=== PATIENT | male | born 1950 | race Caucasian/White ===

== ENCOUNTER 2020-10-15 10:08 | Emergency (ER) | payer OTHER, SELFPAY ==
[2020-10-15 10:16] VITALS: BP 130/63; PULSE 64; RESP 16; TEMP 36.4; O2SAT 99
--- NOTE | 2020-10-15 10:40 | ED.EAR ---
HPI - Ear Problem General Chief complaint: Ear Stated complaint: clogged ears History of Present Illness HPI Narrative: This is a 69-year-old male comes in complaining of not being able to hear that well states that both of his ears are clogged with wax. Patient states that has been put some Debrox and he had his tried to flush his ears but it did not work Related Data Allergies Allergy/AdvReac Type Severity Reaction Status Date / Time No Known Allergies Allergy Unverified 01/25/16 08:27 Review of Systems Review of Systems: Narrative: CONSTITUTIONAL: Denies fever, chills, or sweats. EYES: Denies visual changes, redness, or discharge. ENT: Denies rhinorrhea, congestion, sore throat, or otalgia. Complains of not being able to hear and needs to get the wax out of his ear CARDIOVASCULAR:Denies chest pain, palpitations, or edema. RESPIRATORY: Denies cough or dyspnea. GASTROINTESTINAL: Denies abdominal pain, nausea, vomiting, or diarrhea. GENITOURINARY: Denies dysuria or hematuria. SKIN:[Denies rash or itching. MUSCULOSKELETAL:Denies back pain, joint pain, or myalgia. NEUROLOGIC: Denies headache, numbness, or weakness. PSYCHIATRIC:Denies anxiety or depression PMFSH Social History Social History Smoking status: Never smoker Alcohol intake: current Comments At time as signature, I have reviewed and agree with nursing past medical, social, surgical and family history. Please see nursing chart for further information. There is no relevant family history pertinent to the presenting complaint. Exam Narrative: Exam Narrative: GENERAL:Well-appearing, well-nourished, and in no acute distress. HEAD:Normocephalic, atraumatic. EYES: PERRLA and EOMI. ENT: Nares clear, no rhinorrhea or epistaxis. Mucous membranes moist. Bilateral ears impacted with cerumen NECK: Supple. CHEST: Clear to auscultation. No respiratory distress. HEART: Regular rate and rhythm. No murmur heard. Normal peripheral pulses. ABDOMEN: Soft, nontender, nondistended, normal active bowel sounds. EXTREMITIES: Normal range of motion. No edema. SKIN: Warm, dry, no rash. NEURO: No focal deficits. Alert and oriented x3. Course Vital Signs Vital signs: Vital Signs Temperature 97.5 F L 10/15/20 10:16 Pulse Rate 64 10/15/20 10:16 Respiratory Rate 16 10/15/20 10:16 Blood Pressure 130/63 10/15/20 10:16 Pulse Oximetry 99 10/15/20 10:16 Temperature 97.5 F L 10/15/20 10:16 Pulse Rate 64 10/15/20 10:16 Respiratory Rate 16 10/15/20 10:16 Blood Pressure 130/63 10/15/20 10:16 Pulse Oximetry 99 10/15/20 10:16 Procedures Ear Wax Removal Both Ears: Ear Wax Removal Date: 10/15/20 Ear Wax Removal Time: 11:10 Cerumenolytic Used: 5-10% Sodium Bicarb solution Results: Re-examined: cerumen removed completely TM Examination: TM(s) intact, normal appearance and TM(s) erythematous Patient Tolerated Procedure: well Complications: no problems Technique: ear canal irrigated and ear canal curetted Additional Comments: left sided erythema with auditory canal irritation. Copious secretions removed from bilateral ears Patient able to hear a lot better prior to discharge Medical Decision Making Vital Signs Vital Signs: Vital Signs Temperature 97.5 F L 10/15/20 10:16 Pulse Rate 64 10/15/20 10:16 Respiratory Rate 16 10/15/20 10:16 Blood Pressure 130/63 10/15/20 10:16 Pulse Oximetry 99 10/15/20 10:16 Temperature 97.5 F L 10/15/20 10:16 Pulse Rate 64 10/15/20 10:16 Respiratory Rate 16 10/15/20 10:16 Blood Pressure 130/63 10/15/20 10:16 Pulse Oximetry 99 10/15/20 10:16 Discharge Plan Discharge Clinical Impression: Bilateral impacted cerumen Patient Disposition: Home, Self-Care Condition: Stable Instructions: Antibiotic Form, Carbamide Peroxide (Into the ear) Additional Instructions: Unless a medicine was prescribed, you ma
== END 2020-10-15 11:33 | disposition home or self-care (01) ==
PROVIDERS: Emergency Provider Nurse Practitioner Family; PCP Family Medicine
DX: H61.23 Impacted cerumen, bilateral (principal)
CPT/HCPCS: 69210; 99203; A9270; G0463

== ENCOUNTER → 2021-08-29 13:06 | Outpatient (CLI) | payer OTHER, SELFPAY ==
--- NOTE | ~2021-08-29 | MR_ITS ---
EXAMINATION: MR brain/brain stem wo/w con DATE: 08/29/2021 14:06 INDICATION: Visual field defects TECHNIQUE: Magnetic resonance imaging (MRI) of the brain and brainstem was performed without intraven ous contrast. Sequences included sagittal and axial T1-weighted SE, axial diffusion-weighted FS SE, a xial T2*-weighted GRE, axial T2-weighted FLAIR Propeller, and axial T2-weighted Propeller. Apparent d iffusion coefficient (ADC) maps were created. COMPARISON: None. FINDINGS: Brain parenchymal volume is normal for age. Orbits are symmetric without disconjugate gaze. No ventriculomegaly or midline shift. No acute intracranial infarction or hemorrhage. Structures of the posterior fossa including 7/8th cranial nerve complexes are normal. Paranasal sinuses are unremar kable. Orbits are symmetric without disconjugate gaze. There are scattered mild periventricular and s ubcortical white matter changes, most likely related to small vessel ischemic disease (microangiopath y). No abnormal contrast enhancement. IMPRESSION: 1. Normal aging brain. Reviewed, dictated and finalized at location A. IMPRESSION: 1. Normal aging brain.
--- NOTE | ~2021-08-29 | MR_ITS ---
EXAMINATION: MR orbits face neck wo/w con DATE: 08/29/2021 14:07 INDICATION: Visual field defects in the left eye TECHNIQUE: Magnetic resonance imaging (MRI) of the face and orbits was performed without and with 19 mL Multihance intravenous contrast. Sequences included axial and coronal T1-weighted FSE and T2-weigh rio FS FSE and postcontrast axial and coronal T1-weighted FS FSE. COMPARISON: None. FINDINGS: The bilateral globes appear normal with normally positioned. Intraocular lenses. There is increased f luid signal surrounding the bilateral optic nerves with the diameter of the optic nerve sheaths measu ring 7 mm on both the left and right measured 4 mm posterior to the optic discs. No evident bulging o f the optic discs. No enhancement of the optic nerves to suggest optic neuritis. The orbits are other ty normal. Optic chiasm appears normal with no aneurysm or other abnormal masses identified at the suprasellar cistern. Mild mucosal thickening in the bilateral maxillary and ethmoid sinuses. Tiny naga ateral mastoid effusions. Middle ear cavities are clear. Visualized portions of the brain are unremar kable with no abnormally enhancing lesions. IMPRESSION: 1. Increased subarachnoid fluid surrounding the bilateral optic nerves with increased diameter of the optic nerve sheaths raising concern for papilledema/intracranial hypertension. Correlate with ophtha lmic exam. Reviewed, dictated and finalized at location A. IMPRESSION: 1. Increased subarachnoid fluid surrounding the bilateral optic nerves with inc reased diameter of the optic nerve sheaths raising concern for papilledema/intr acranial hypertension. Correlate with ophthalmic exam.
[2021-08-29 13:28] LABS: Estimated Glomerular Filt Rate 50
== END ==
PROVIDERS: PCP Family Medicine
DX: H53.47 Heteronymous bilateral field defects (principal)
CPT/HCPCS: 70543; 70553; A9577

== ENCOUNTER → 2022-03-06 15:19 | Outpatient (CLI) | payer OTHER, SELFPAY ==
--- NOTE | ~2022-03-06 | MR_ITS ---
EXAMINATION: MR knee LT wo con DATE: 03/06/2022 16:06 INDICATION: Medial left knee pain TECHNIQUE: Magnetic resonance imaging (MRI) of the left knee was performed without intravenous contra st. Sequences included coronal PD-weighted FSE, coronal PD-weighted FS FSE, sagittal T2-weighted FSE , sagittal PD-weighted FS FSE and axial PD weighted fat saturated FSE. COMPARISON: Left knee radiographs dated 10/03/2021 FINDINGS: Medial compartment: Complex tear of the body and posterior horn of the medial meniscus. There is medial extrusion of the meniscal body. Deep chondral ulceration and fissuring with a couple tiny foci of edema-like subarticu lar marrow signal change at the anterior weightbearing medial femoral condyle. Less severe partial th ickness cartilage loss shallow chondral surface and irregularity along the central to posterior weigh tbearing medial femoral condyle additional tiny focus of subtle edema-like signal change likely relat ed to underlying deep fissuring at the posterior weightbearing medial femoral condyle. Shallow chondr al surface regularity at the lateral side of the medial tibial plateau along the shoulder the interco ndylar eminence. Lateral compartment: Lateral meniscus is normal. Articular cartilage is normal. Patellofemoral compartment: Deep chondral ulceration and fissuring with underlying cortical irregularity and edema-like subarticu lar marrow signal changes at the medial trochlea and trochlear groove with inferior predominant. Smal l region of shallow fissuring at the central aspect of the patellar apical ridge. Ligaments and tendons: Anterior and posterior cruciate ligaments are normal. The medial collateral ligament and fibular amanda ateral ligament complex are normal. The extensor mechanism is normal. The visualized medial and later al hamstring tendons as well as the iliotibial band are normal. Fluid: Small left knee joint effusion. No loose osteochondral bodies identified. Osseous/other: Mild cystic change underlying the footplate of the anterior horn of the medial meniscus. No fracture or pathologic marrow replacing process. Subcutaneous varicosities along the medial side of the knee. IMPRESSION: 1. Medial extrusion of the medial meniscus with complex tear of the body and posterior horn. 2. 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 Reviewed, dictated and finalized at location B. ORK DESIGNER IMPRESSION: 1. Medial extrusion of the medial meniscus with complex tear of the body and po sterior horn. 2. 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
== END ==
PROVIDERS: PCP Family Medicine; Visit Provider Nurse Practitioner Family
DX: S83.232A Complex tear of medial meniscus, current injury, left knee, initial encounter (principal); X58.XXXA Exposure to other specified factors, initial encounter; M17.12 Unilateral primary osteoarthritis, left knee
CPT/HCPCS: 73721

== ENCOUNTER 2022-07-02 09:22 | Outpatient (CLI) | payer OTHER, SELFPAY ==
--- NOTE | ~2022-07-02 | XR_ITS ---
EXAMINATION: XR chest 2V DATE: 07/02/2022 09:49 INDICATION: Chest congestion TECHNIQUE: PA and lateral views of the chest were obtained. COMPARISON: Chest radiograph dated 07/26/2010 FINDINGS: The lungs remain clear with no focal airspace opacities, pulmonary edema, pleural effusion or pneumot horax. The cardiomediastinal silhouette is normal. Visualized bones and soft tissues are unremarkable . IMPRESSION: 1. No acute cardiopulmonary disease. Reviewed, dictated and finalized at location B.
== END 2022-07-02 09:23 | disposition home or self-care (01) ==
PROVIDERS: PCP Family Medicine; Visit Provider Nurse Practitioner Family
DX: R09.89 Other specified symptoms and signs involving the circulatory and respiratory systems (principal)
CPT/HCPCS: 71046

== ENCOUNTER 2022-08-03 11:00 | Emergency (ER) | payer OTHER, SELFPAY ==
[2022-08-03] VITALS (9 sets, daily range): BP systolic 100–119; BP diastolic 66–79; PULSE 66–153; RESP 13–20; O2SAT 95–100
--- NOTE | ~2022-08-03 | XR_ITS ---
EXAMINATION: XR chest 1V portable 08/03/2022 11:30 INDICATION: New onset of atrial fibrillation PROCEDURE: AP portable chest COMPARISON: Comparison to multiple prior studies sequentially, with oldest reviewed study dated 07/26/2010. FINDINGS: The lungs are clear. The cardiomediastinal silhouette is within normal limits. There are no pleural effusions. There is no pneumothorax suspected. IMPRESSION: 1: NO ACUTE CARDIOPULMONARY DISEASE. Reviewed, dictated and finalized at location B.
--- NOTE | 2022-08-03 11:09 | ECG_ITS ---
Measurements Intervals [place] Rate: 129 P: DC: 0 QRS: -10 QRSD: 90 T: 74 QT: 278 QTc: 409 Interpretive Statements ATRIAL FIBRILLATION WITH RAPID VENTRICULAR RESPONSE MODERATE VOLTAGE CRITERIA FOR LVH, CONSIDER NORMAL VARIANT POSSIBLE SEPTAL MYOCARDIAL INFARCTION , PROBABLY OLD ABNORMAL ECG NO PREVIOUS ECG AVAILABLE FOR COMPARISON Electronically Signed On 08-03-2022 16:50:47 CDT by Mike Chavis M.D.
[2022-08-03] MEDS: dilTIAZem HCl INJ 25 MG/5 ML VIAL (11:18)
[2022-08-03] MEDS: dilTIAZem 100 MG/100 ML 100 MG/100 ML BAG (11:19)
[2022-08-03 11:21] LABS: Basophils Percent Auto 0.5 % (0.2-1.2); Eosinophils Absolute Auto 0.1 K/mm3 (0-0.3); Eosinophils Percent Auto 0.8 % (0-4.4); Hematocrit 47.5 % (42.0-52.0); Hemoglobin 16.3 g/dL (14.0-18.0); Immature Granulocyte Absolute 0.02 K/mm3 (0.00-0.031); Immature Granulocyte Percent A 0.3 % (0-0.5); Lymphocytes Absolute Auto 1.69 K/mm3 (0.9-3.2); Mean Corpuscular HGB Conc 34.3 g/dl (32-36); Mean Corpuscular Hemoglobin 30.8 pg (26-34); Mean Corpuscular Volume 89.8 fl (80-100); Mean Platelet Volume 10.6 fl (7.4-10.4); Monocytes Absolute Auto 0.6 K/mm3 (0.1-0.6); Monocytes Percent Auto 8.2 % (2.6-8.5); Neutrophils Absolute Auto 4.9 K/mm3 (1.3-6.7); Neutrophils Percent Auto 67.2 % (45.5-73.1); Platelet Count Result 243 k/mm3 (150-375); Red Blood Count 5.29 M/mm3 (4.6-6.20); Red Cell Distribution Width 13.3 % (11.5-14.5); White Blood Count 7.4 K/mm3 (4.5-10.0)
[2022-08-03 11:30] LABS: INR 1.1; Prothrombin Time 13.8 Seconds (11.1-14.7)
[2022-08-03 11:31] LABS: Partial Thromboplastin Time 29.5 SECONDS (22.3-36.8)
[2022-08-03 11:34] LABS: Alanine Aminotransferase 29 U/L (6-50); Albumin Level 4.3 g/dL (3.5-5.1); Alkaline Phosphatase 58 U/L (38-126); Anion Gap 10 mmol/L (8-16); Aspartate Amino Transferase 32 U/L (17-59); Bilirubin,Total 1.2 mg/dL (0.2-1.3); Blood Urea Nitrogen 19 mg/dL (9-20); Calcium 8.9 mg/dL (8.4-10.2); Carbon Dioxide 23 mmol/L (22-30); Chloride 107 mmol/L (98-107); Estimated CRCL calculation 65 ml/min; Estimated Glomerular Filt Rate > 60; Glucose 106 mg/dL (65-110); Lipase 86 U/L (23-300); Potassium 4.1 mmol/L (3.4-5.0); Sodium 140 mmol/L (137-145)
[2022-08-03] MEDS: ASPIRIN 81 MG CHEWABLE TABLET 324 MG PO (11:36)
[2022-08-03 11:44] LABS: Troponin I < 0.012 ng/mL (0.000-0.034)
[2022-08-03 14:41] LABS: Troponin I < 0.012 ng/mL (0.000-0.034)
[2022-08-03] MEDS: ENOXAPARIN 100 MG/ML SYRINGE SUB-Q (15:01)
--- NOTE | 2022-08-03 15:40 | ED.ARRPALP ---
HPI - Arrhythmia/Palpitations General Chief Complaint: Arrhythmia/Palpitations Stated Complaint: increased hr Time Seen by Provider: 08/03/22 13:17 Source: patient and EMS Mode of arrival: EMS Limitations: no limitations History of Present Illness HPI narrative: 71 years old white male came to the emergency room by ambulance because of fast heartbeat that started last night, he denies any fever, chills, nausea, vomiting, shortness of breath, chest pain or having similar symptoms in the past. Related Data Allergies Allergy/AdvReac Type Severity Reaction Status Date / Time No Known Allergies Allergy Verified 08/03/22 11:21 Review of Systems Review of Systems: All systems reviewed & are unremarkable except as noted in HPI and below PMFSH Past Medical History Medical History Left knee DJD Left knee pain Medial meniscus tear Vision abnormalities Family History Family History Unknown Lung cancer Social History Social History Smoking status: Never smoker Alcohol intake: current Drinks per week: 2 Substance use: never Living arrangements: with family Occupation/Education: retired Gender identity (if verbalized by the patient): Male Exam Narrative: General appearance: Well-developed, well-nourished Skin: Normal color Head: Normocephalic, nontraumatic Eyes: Clear conjunctiva ENT: Oropharynx normal, ears normal, nose normal Neck: Supple, nontender Chest and respiratory: Airway patent, no respiratory distress, no accessory muscle use Heart: Tachycardia, irregular irregularity Abdomen: Soft, nontender, no organomegaly, quiet bowel sounds Vascular: Normal peripheral pulses, normal capillary refill. 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 Currently patient is asymptomatic Date: 08/03/22 Time: 17:01 Consultations Consultation #1: Dr. Upstream Will be okay for patient to go home on aspirin and Lopressor 25 mg twice daily. Vital Signs Vital signs: Vital Signs Pulse Rate 79 08/03/22 11:10 Respiratory Rate 20 08/03/22 11:10 Blood Pressure 119/78 08/03/22 11:10 Pulse Oximetry 95 08/03/22 11:10 Oxygen Delivery Room Air 08/03/22 11:10 Pulse Rate 90 08/03/22 15:42 Respiratory Rate 13 08/03/22 15:42 Blood Pressure 112/70 08/03/22 15:42 Pulse Oximetry 97 08/03/22 15:42 Oxygen Delivery Room Air 08/03/22 11:10 MDM - Arrhythmia/Palpitations MDM Narrative Medical decision making narrative: Patient presents with fast heartbeat noticed yesterday. EKG on arrival showed A-fib with RVR. Differential diagnosis include hyperthyroidism, stress, anxiety, extra caffeine, valvular abnormality, coronary artery disease. Physical examination showed tachycardia with irregular irregularity otherwise stable patient. Work-up today showed normal blood work-up, negative troponin x2, chest x-ray showed no acute abnormality, Patient on Cardizem bolus of 10 mg then 5 mg/h, currently patient heart rate running between 80 and 90 A-fib. Compared to 229 on arrival to the ED. Patient will be admitted to the hospitalist, continue Bom drip, cardiology consult
--- NOTE | 2022-08-03 16:30 | ECG_ITS ---
Measurements Intervals [place] Rate: 73 P: MI: 0 QRS: -1 QRSD: 99 T: 35 QT: 374 QTc: 413 Interpretive Statements ATRIAL FIBRILLATION MODERATE VOLTAGE CRITERIA FOR LVH, CONSIDER NORMAL VARIANT POSSIBLE SEPTAL MYOCARDIAL INFARCTION , OF INDETERMINATE AGE ABNORMAL ECG COMPARED TO ECG 08/03/2022 11:03:30 HEART RATE HAS DECREASED Electronically Signed On 08-03-2022 16:56:23 CDT by Mike Chavis M.D.
--- NOTE | 2022-08-03 16:37 | ECG_ITS ---
Measurements Intervals [place] Rate: 64 P: 49 IN: 169 QRS: -3 QRSD: 97 T: 34 QT: 401 QTc: 416 Interpretive Statements SINUS RHYTHM MINIMAL VOLTAGE CRITERIA FOR LVH, CONSIDER NORMAL VARIANT [MEETS CRITERIA IN ONE OF: R(aVL), S(V1), R(V5), R(V5/V6)+S(V1)] SEPTAL MYOCARDIAL INFARCTION , PROBABLY OLD [40+ ms Q WAVE IN V1/V2] COMPARED TO ECG 08/03/2022 15:50:55 SINUS RHYTHM NOW PRESENT Electronically Signed On 08-06-2022 10:32:17 CDT by Allen Baltazar M.D.
[2022-08-03] MEDS: METOPROLOL TARTRATE 50 MG TAB 25 MG PO (17:05)
== END 2022-08-03 17:35 | disposition home or self-care (01) ==
PROVIDERS: Emergency Provider Emergency Medicine; PCP Family Medicine
DX: I48.91 Unspecified atrial fibrillation (principal); M17.12 Unilateral primary osteoarthritis, left knee; R94.31 Abnormal electrocardiogram [ECG] [EKG]
CPT/HCPCS: 36415; 71045; 80053; 83690; 84443; 84484; 85025; 85610; 85730; 93005; 96365; 96366; 96372; 99284; A9270; J1650

== ENCOUNTER 2022-08-09 18:41 | Emergency (ER) | payer OTHER, SELFPAY ==
[2022-08-09 18:45] VITALS: BP 119/68; PULSE 76; RESP 16; TEMP 37; O2SAT 98
--- NOTE | 2022-08-09 19:08 | ED.EYEPROB ---
HPI - Eye Problem General Chief complaint: Eye Problems Stated complaint: Eye Problem Source: patient Mode of arrival: ambulatory Limitations: no limitations History of Present Illness HPI Narrative: Patient was seen at 1901. Patient presents today complaining of right eye redness, itching, drainage that started this afternoon. States his in grand kids had the same symptoms last week and were treated with eyedrops. Denies photophobia. He has not tried any [id number] medication for symptoms prior to arrival. Denies any upper respiratory or allergy symptoms. He does not wear contacts. Related Data Allergies Allergy/AdvReac Type Severity Reaction Status Date / Time No Known Allergies Allergy Verified 08/03/22 11:21 Review of Systems Review of Systems: CONSTITUTIONAL: Denies body aches, fever, chills, or sweats. EYES: Denies visual changes. + right eye redness, itching, discharge ENT: Denies rhinorrhea, congestion, sore throat, or otalgia. CARDIOVASCULAR: Denies chest pain, palpitations, or edema. RESPIRATORY: Denies cough or dyspnea. GASTROINTESTINAL: Denies abdominal pain, nausea, vomiting, or diarrhea. GENITOURINARY: Denies dysuria or hematuria. SKIN: Denies rash, itching, or wounds. MUSCULOSKELETAL: Denies back pain, joint pain, or myalgia. NEUROLOGIC: Denies headache, numbness, tingling, or weakness. PSYCH: Denies depression or anxiety. [facility] Past Medical History Medical History (Updated 08/09/22 @ 19:14 by Amira Baugh, [facility], ) Afib Left knee DJD Left knee pain Medial meniscus tear Vision abnormalities Family History Family History Unknown Lung cancer Social History Social History Smoking status: Never smoker Alcohol intake: current Drinks per week: 2 Substance use: never Living arrangements: with family Occupation/Education: retired Gender identity (if verbalized by the patient): Male Comments At time of signature, I have reviewed and agree with nursing past medical, surgical, social and family history unless otherwise noted. Please see nursing chart for further information. There is no relevant family history pertinent to the presenting complaint Exam Narrative: GENERAL: Well-appearing, well-nourished, and in no acute distress. HEAD: Normocephalic, atraumatic. EYES: EOMI. PERRL. Left eye normal. Right eye with injected conjunctiva and chemosis and moderate amount of green purulent discharge in the lateral and medial canthus. Lids and lashes normal. ENT: Mucous membranes pink and moist. NECK: Normal AROM. CHEST: No respiratory distress. EXTREMITIES: Normal range of motion. No edema. SKIN: Warm, dry, no rash. Capillary refill normal. Normal skin turgor. NEURO: No focal deficits. Alert and oriented x3. Gait steady. PSYCH: Normal affect. No signs of depression or anxiety. Course Course Level of Care: Express Care Visit Vital Signs Vital signs: Vital Signs Temperature 98.6 F 08/09/22 18:45 Pulse Rate 76 08/09/22 18:45 Respiratory Rate 16 08/09/22 18:45 Blood Pressure 119/68 08/09/22 18:45 Pulse Oximetry 98 08/09/22 18:45 Oxygen Delivery Room Air 08/09/22 18:45 Temperature 98.6 F 08/09/22 18:45 Pulse Rate 76 08/09/22 18:45 Respiratory Rate 16 08/09/22 18:45 Blood Pressure 119/68 08/09/22 18:45 Pulse Oximetry 98 08/09/22 18:45 Oxygen Delivery Room Air 08/09/22 18:45 Reviewed MDM - Eye Problem MDM Narrative Medical decision making narrative: Symptoms consistent with bacterial conjunctivitis. Will treat with ofloxacin as Polytrim is on back order. Anticipatory guidance given. Differential Diagnosis Differential diagnosis: Likely corneal abrasion and conjunctivitis Critical Care Time Critical Care Time Critical Care Time: No Discharge Plan Discharge Clinical Impression:
== END 2022-08-09 19:19 | disposition home or self-care (01) ==
LOC: EXPBETH 18:43
PROVIDERS: Emergency Provider Nurse Practitioner; PCP Family Medicine
DX: H10.31 Unspecified acute conjunctivitis, right eye (principal); I48.91 Unspecified atrial fibrillation; M17.12 Unilateral primary osteoarthritis, left knee
CPT/HCPCS: 99213; G0463

== ENCOUNTER 2022-12-03 02:38 | Day surgery (SDC) | payer OTHER, SELFPAY ==
[2022-11-30 13:33] VITALS: BMI 28.8
[2022-12-03] VITALS (16 sets, daily range): BP systolic 87–114; BP diastolic 62–86; PULSE 50–83; RESP 10–17; TEMP 36.4; O2SAT 95–100; BMI 28.8
--- NOTE | 2022-12-03 07:00 | ECG_ITS ---
Measurements Intervals [place] Rate: 55 P: 57 MI: 248 QRS: -10 QRSD: 110 T: -13 QT: 459 QTc: 442 Interpretive Statements SINUS BRADYCARDIA WITH FIRST DEGREE AV BLOCK COMPARED TO ECG 12/03/2022 07:31:58 SINUS RHYTHM REPLACES ATRIAL FLUTTER Electronically Signed On 12-03-2022 16:53:21 CDT by Allen Baltazar M.D.
[2022-12-03 08:02] LABS: Anion Gap 1 mmol/L (8-16); Blood Urea Nitrogen 22 mg/dL (9-20); Calcium 8.6 mg/dL (8.4-10.2); Carbon Dioxide 26 mmol/L (22-30); Chloride 107 mmol/L (98-107); Estimated CRCL calculation 64 ml/min; Estimated Glomerular Filt Rate > 60; Glucose 97 mg/dL (65-110); Magnesium 2.1 mg/dL (1.6-2.3); Potassium 4.1 mmol/L (3.4-5.0); Sodium 134 mmol/L (137-145)
[2022-12-03] MEDS: SODIUM CHLORIDE 0.9% IV 1,000 ML 30 ML IV CONT (08:15)
--- NOTE | 2022-12-03 08:30 | ECG_ITS ---
Measurements Intervals [place] Rate: 62 P: RI: 0 QRS: -17 QRSD: 118 T: 12 QT: 424 QTc: 432 Interpretive Statements ATRIAL FLUTTER WITH CONTROLLED VENTRICULAR RESPONSE NONSPECIFIC INTRAVENTRICULAR CONDUCTION DELAY VOLTAGE EVIDENCE OF LVH ABNORMAL RHYTHM ECG COMPARED TO ECG 08/03/2022 16:37:40 ATRIAL FLUTTER REPLACES SINUS RHYTHM Electronically Signed On 12-03-2022 16:52:33 CDT by Allen Baltazar M.D.
--- NOTE | 2022-12-03 08:46 | WPDMODSED ---
Moderate Sedation Note-Pt Data Patient Data Diagnosis: Atrial fibrillation/atrial flutter Present Complaint: Generalized fatigue shortness of breath with activity Procedure to be performed/Plan: DC cardioversion Allergies Allergy/AdvReac Type Severity Reaction Status Date / Time No Known Allergies Allergy Verified 12/03/22 07:35 Home Medications Medication Instructions Recorded Confirmed Type flecainide 100 mg tablet 100 mg PO Q12H 11/30/22 12/03/22 History metoprolol succinate 50 mg 50 mg PO HS 11/30/22 12/03/22 History tablet,extended release 24 hr rivaroxaban 20 mg tablet (Xarelto) 20 mg PO DAILY 11/30/22 12/03/22 History Current Medications: Active Medications Sodium Chloride (Normal Saline Iv) 1,000 mls @ 30 mls/hr IV CONT .Q24H LEROY Sedation/Anesthesia: No previous sedation/anesthesia problems (including family history). PMFSH Past Medical History Medical History (Updated 08/10/22 @ 00:01 by Charlene Crespo) Afib Left knee DJD Left knee pain Medial meniscus tear Vision abnormalities Family History Family History Unknown Lung cancer Social History Social History Smoking packs per day: 0 Smoking cigarettes per day: 0.0 Years smoked: 0 Smoking pack-years: 0.00 Smoking status: Never smoker Second hand tobacco smoke exposure: No Alcohol intake: former Drinks per week: 4 Substance use: never Substance use type: does not use Living arrangements: with family Additional living arrangements comments: LIVES W/ [place] Occupation/Education: retired Gender identity (if verbalized by the patient): Male Spiritual care concerns: No Mod Sed Physical Exam Physical Exam Pre Procedural Exam: Normal: Appearance, Throat, Airway, Lungs, Heart Size, Neuro Exam and Extremities and Variation: Heart Rate (Irregularly irregular) and Heart Rhythm Hours since solid foods: 12 Hours since liquid intake: 12 Mallampati Classification: class II Internal Medicine - PN: Obj Da Vital Signs Vital Signs: Vital Signs - 24 hr 12/03/22 07:38 12/03/22 08:31 12/03/22 08:37 Temperature 36.4 C Pulse Rate 66 72 83 Respiratory Rate 12 16 16 Blood Pressure 109/81 114/66 111/99 H Pulse Oximetry 99 97 99 Oxygen Delivery Room Air Room Air Nasal Cannula Oxygen Flow Rate 3 12/03/22 08:40 Temperature Pulse Rate 50 L Respiratory Rate 10 L Blood Pressure 104/73 Pulse Oximetry 95 Oxygen Delivery Nasal Cannula Oxygen Flow Rate 3 Meds/Results Medications: Active Medications Generic Name Dose Route Start Last Admin Trade Name Freq PRN Reason Stop Dose Admin Sodium Chloride 1,000 mls @ 30 mls/hr 12/03/22 07:00 Normal Saline Iv IV CONT .Q24H LEROY Labs 12/03/22 07:45 Labs: Laboratory Results - last 24 hr 12/03/22 07:45 Sodium 134 L Potassium 4.1 Chloride 107 Carbon Dioxide 26 Anion Gap 1 L BUN 22 H Creatinine 1.10 Estim Creat Clear Calc 64 Estimated GFR > 60 Glucose 97 Calcium 8.6 Magnesium 2.1 ASA Classification/Sedation ASA Classification/Sedation ASA Class: II Emergent: No Risks: Risks, benefits and alternatives explained and patient/family accepted plan for sedation. Patient re-evaluated immediately prior to sedation.
--- NOTE | 2022-12-03 08:47 | P.PCNCC_ITS ---
Cardiac Cath Procedure Note Date of procedure:: 12/03/22 Performing physician:: Allen Baltazar MD Indication:: Atrial flutter Brief clinical history:: This is a 72-year-old man with a history of atrial fibrillation and now history of atrial flutter. He has been treated medically with metoprolol and despite this recently has had a recurrence of AF is currently now in a sustained pattern of atrial flutter. He is symptomatic with shortness breath with minimal activity. Previous workup has demonstrated no evidence of structural or ischemic heart disease. He has been anticoagulated with Xarelto for 4 weeks and started on flecainide for additional antiarrhythmic benefit. Procedure Procedure performed:: DC cardioversion Sedation/Medication given:: Propofol IV total dosage of 80 mg Estimated blood loss:: No blood loss Procedure note:: Patient was brought to the cardiac catheterization lab holding area in the postabsorptive state. Defibrillator patches were placed in the AP position the defibrillator was synchronized at 200 joules output. He was then sedated with propofol in aliquots a total of 80 mg was given which provided excellent sedation. He was counter shocked with 200 joules in a synchronized fashion x1 attempt which restored sinus bradycardia heart rate of 55. Findings:: As above Conclusion:: Successful uncomplicated DC cardioversion terminating atrial flutter restoring sinus bradycardia using 200 joules x1 shock Allen Baltazar MD [facility]
--- NOTE | 2022-12-03 08:55 | PM.IMHP ---
H&P: HPI History of Present Illness Date/Time: 12/03/22 08:55 Chief Complaint: Generalized fatigue/shortness of breath Narrative: This is a 72-year-old man with a history of atrial fibrillation. He presented initially in July of this year with symptomatic atrial fibrillation. He was treated with diltiazem in the emergency room and sinus rhythm was restored. He has been maintained on metoprolol. Because of low chads score he has not been anticoagulated. Recently off of his beta-velma while he was traveling he had a recurrence of atrial fibrillation. He has been started back on metoprolol as well as on Xarelto at this point. He is actually in atrial flutter now with controlled response. Flecainide has been added as an outpatient and he is admitted today for an attempt at restoring sinus rhythm electrically. His only complaint has to do with generalized fatigue and lack of energy. Review of Systems Constitutional: Constitutional: Reports fatigue and Reports lethargy Eyes: Eyes: Reports no additional eye complaints ENT: Reports system reviewed and no additional complaints, except as documented Cardiovascular: Cardiovascular: Reports as per HPI Respiratory: Respiratory: Reports dyspnea on exertion Gastrointestinal: Gastrointestinal: Reports no additional gastrointestinal complaints Musculoskeletal: Musculoskeletal: Reports no additional musculoskeletal complaints Integumentary/Breasts: Skin/Breast: Reports system reviewed and no additional complaints, except as docu Neurologic: Reports system reviewed and no additional complaints, except as documented PMFSH Past Medical History Medical History (Updated 12/03/22 @ 09:00 by Allen Baltazar MD) Afib Left knee DJD Left knee pain Medial meniscus tear Vision abnormalities Family History Family History Unknown Lung cancer Social History Social History Smoking packs per day: 0 Smoking cigarettes per day: 0.0 Years smoked: 0 Smoking pack-years: 0.00 Smoking status: Never smoker Second hand tobacco smoke exposure: No Alcohol intake: former Drinks per week: 4 Substance use: never Substance use type: does not use Living arrangements: with family Additional living arrangements comments: LIVES W/ [place] Occupation/Education: retired Gender identity (if verbalized by the patient): Male Spiritual care concerns: No Meds Home Medications and Allergies Home Medications Medication Instructions Recorded Confirmed Type flecainide 100 mg tablet 100 mg PO Q12H 11/30/22 12/03/22 History metoprolol succinate 50 mg 50 mg PO HS 11/30/22 12/03/22 History tablet,extended release 24 hr rivaroxaban 20 mg tablet (Xarelto) 20 mg PO DAILY 11/30/22 12/03/22 History Allergies Allergy/AdvReac Type Severity Reaction Status Date / Time No Known Allergies Allergy Verified 12/03/22 07:35 Vital Signs Vital Signs - 24 hr 12/03/22 07:38 12/03/22 08:31 12/03/22 08:50 Temperature 36.4 C Pulse Rate 66 72 55 L Respiratory Rate 12 16 12 Blood Pressure 109/81 114/66 97/66 L Pulse Oximetry 99 97 98 Oxygen Delivery Room Air Room Air Room Air Oxygen Flow Rate 12/03/22 08:37 12/03/22 08:40 12/03/22 08:45 Temperature Pulse Rate 83 50 L 55 L Respiratory Rate 16 10 L 17 Blood Pressure 111/99 H 104/73 92/69 L Pulse Oximetry 99 95 98 Oxygen Delivery Nasal Cannula Nasal Cannula Nasal Cannula Oxygen Flow Rate 3 3 3 Exam Const: General: comfortable and no acute distress Other: Pleasant healthy-appearing gentleman appears his stated age in no distress of any kind HENMT: Mouth: Yes moist mucous membranes Eyes: Sclera: sclerae normal Neck: Neck: supple and no JVD Resp: Effort & Inspection: normal respiratory effort Auscultation: clear to auscultation bilaterally Cardio: Rhythm: abn
== END 2022-12-03 10:32 | disposition home or self-care (01) ==
PROVIDERS: PCP Family Medicine; Visit Provider Specialist
PROC: 5A2204Z Restoration of Cardiac Rhythm, Single (ICD-10-PCS; principal; 2022-12-03 08:30)
DX: I48.92 Unspecified atrial flutter (principal); I44.0 Atrioventricular block, first degree; R06.02 Shortness of breath; R53.83 Other fatigue; Z79.01 Long term (current) use of anticoagulants
CPT/HCPCS: 36415; 80048; 83735; 92960; J2704; J7030

== ENCOUNTER 2023-04-19 10:13 | Emergency (ER) | payer OTHER, SELFPAY ==
[2023-04-19 10:17] VITALS: BP 123/67; PULSE 80; RESP 18; TEMP 37.1; O2SAT 99
--- NOTE | 2023-04-19 10:26 | ED.URI ---
HPI - URI/Sore Throat General Chief Complaint: Upper Respiratory Infection Stated Complaint: head/chest/nose Time Seen by Provider: 04/19/23 10:23 Source: patient and RN notes reviewed Mode of arrival: ambulatory Limitations: no limitations History of Present Illness HPI Narrative: 72 year old male presents with concern for chest congestion, headache, rhinorrhea, nasal congestion for more than 1 week. Reports symptoms worsen over the last several days. Reports he has tried Tylenol and airborne without relief of symptoms. He reports he had a negative COVID test towards the start of his symptoms MD elicited complaint: cough and sore throat Related Data Home Medications Medication Instructions Recorded Confirmed flecainide 100 mg tablet 100 mg PO Q12H 11/30/22 12/18/22 metoprolol succinate 50 mg 50 mg PO HS 11/30/22 12/18/22 tablet,extended release 24 hr rivaroxaban 20 mg tablet (Xarelto) 20 mg PO DAILY 11/30/22 12/18/22 Allergies Allergy/AdvReac Type Severity Reaction Status Date / Time No Known Allergies Allergy Verified 12/18/22 09:30 Review of Systems Review of Systems: CONSTITUTIONAL: Reports malaise. Denies chills, sweats, or fever. EYES: Denies visual changes, redness, or discharge. ENT: Reports rhinorrhea, congestion, and sore throat. CARDIOVASCULAR: Denies chest pain, palpitations, or edema. RESPIRATORY: Reports productive cough. Denies dyspnea. GASTROINTESTINAL: Denies abdominal pain, nausea, vomiting, diarrhea SKIN: Denies rash or itching. MUSCULOSKELETAL: Denies myalgia. NEUROLOGIC: Reports headache. All systems reviewed & are unremarkable except as noted in HPI and below PMFSH Past Medical History Medical History Afib Left knee DJD Left knee pain Medial meniscus tear Vision abnormalities Family History Family History Unknown Lung cancer Social History Social History Smoking packs per day: 0 Smoking cigarettes per day: 0.0 Years smoked: 0 Smoking pack-years: 0.00 Smoking status: Never smoker Second hand tobacco smoke exposure: No Alcohol intake: former Drinks per week: 4 Substance use: never Substance use type: does not use Living arrangements: with family Additional living arrangements comments: LIVES W/ [place] Occupation/Education: retired Gender identity (if verbalized by the patient): Male Spiritual care concerns: No Comments At time of signature, agree with nursing past medical, surgical, social and family history. There is no relevant family history pertinent to the presenting complaint Exam Narrative: GENERAL: Well-appearing, well-nourished, and in no acute distress. HEAD: Normocephalic EYES: PERRLA, conjunctivae clear ENT: Nares clear. Mucous membranes moist. TM pearly finnegan with dull light reflex bilaterally; no tragal tenderness. Oropharynx not erythematous without lesions. Tonsils not enlarged and without exudate, no drooling, no hoarseness, no trismus, uvula midline. NECK: Supple. No lymphadenopathy CHEST: Clear to auscultation, breath sounds equal. No wheezing, rhonchi, rales, or stridor. No respiratory distress, speaks in full sentences. HEART: Regular rate and rhythm. No murmur heard. SKIN: Warm, dry, no rash. NEURO: Alert and oriented x3. PSYCH: Normal mood and affect Course Course Emergency Course: Patient is aware of diagnosis, understands and agrees to treatment plan. Anticipatory guidance given. Patient agrees to follow-up as directed and is aware of reasons to seek care at the emergency department. Portions of this record may have been created with voice recognition software Level of Care: Express Care Visit Vital Signs Vital signs: Vital Signs Temperature 98.7 F 04/19/23 10:17 Pulse Rate 80 04/19/23 10:17 Respiratory Rate 18 03/23
== END 2023-04-19 10:39 | disposition home or self-care (01) ==
PROVIDERS: Emergency Provider Nurse Practitioner; PCP Family Medicine
DX: J32.9 Chronic sinusitis, unspecified (principal); J40 Bronchitis, not specified as acute or chronic; I48.91 Unspecified atrial fibrillation; M17.12 Unilateral primary osteoarthritis, left knee
CPT/HCPCS: 99213; G0463

== ENCOUNTER 2024-04-17 10:48 | Emergency (ER) | payer OTHER, SELFPAY ==
[2024-04-17 10:54] VITALS: BP 116/70; PULSE 78; RESP 16; TEMP 37.5; O2SAT 98
--- NOTE | 2024-04-17 11:49 | ED_ITS ---
HPI - URI/Sore Throat General Chief Complaint: Upper Respiratory Infection Stated Complaint: Congestion/Cough/Headache/Fever Time Seen by Provider: 04/17/24 11:50 Source: patient and RN notes reviewed Mode of arrival: ambulatory Limitations: no limitations History of Present Illness HPI Narrative: 73-year-old male presented for complaint of cough, headache, nasal congestion, body aches. Onset 1 week. endorses shortness of breath with exertion. Denies chest pain, wheezing, nausea, vomiting, diarrhea or lethargy. MD elicited complaint: cough Related Data Home Medications ?Medication ?Instructions ?Recorded ?Confirmed ?Last Taken ?Type flecainide 100 mg tablet 100 mg PO Q12H 11/30/22 12/18/22 12/03/22 History metoprolol succinate 50 mg 50 mg PO HS 11/30/22 12/18/22 12/02/22 History tablet,extended release 24 hr rivaroxaban 20 mg tablet (Xarelto) 20 mg PO DAILY 11/30/22 12/18/22 12/02/22 History Allergies Allergy/AdvReac Type Severity Reaction Status Date / Time No Known Allergies Allergy Verified 12/18/22 09:30 Review of Systems Review of Systems: per HPI [facility] Past Medical History Medical History Afib Medial meniscus tear Vision abnormalities Left knee DJD Left knee pain Family History Family History Unknown Lung cancer Social History Social History Smoking packs per day: 0 Smoking cigarettes per day: 0.0 Years smoked: 0 Smoking pack-years: 0.00 Smoking status: Never smoker Second hand tobacco smoke exposure: No Alcohol intake: former Drinks per week: 4 Substance use: never Substance use type: does not use Living arrangements: with family Additional living arrangements comments: LIVES W/ [place] Occupation/Education: retired Gender identity (if verbalized by the patient): Male Spiritual care concerns: No Exam Narrative: GENERAL: mildly Ill-appearing, no acute distress. EYES: conjunctivae clear ENT: Mucous membranes moist. Bilateral TM erythematous, bulging and intact; canal not erythematous, no drainage; no tragal tenderness. Oropharynx erythematous without lesions. No drooling, no hoarseness, no trismus, uvula midline. No tripod positioning, hot potato voice, or soft palate swelling. NECK: Supple. No lymphadenopathy CHEST: Clear to auscultation, breath sounds equal. No respiratory distress, speaks in full sentences. HEART: Regular rate and rhythm. No murmur heard. SKIN: Warm, dry, no rash. NEURO: Alert and oriented x3. Course Course Emergency Course: Patient is aware of diagnosis, understands and agrees to treatment plan. Anticipatory guidance given. Patient agrees to follow-up as directed and is aware of reasons to seek care at the emergency department. Portions of this record may have been created with voice recognition software Level of Care: Express Care Visit Vital Signs Vital signs: Vital Signs Temperature 99.5 F 04/17/24 10:54 Pulse Rate 78 04/17/24 10:54 Respiratory Rate 16 04/17/24 10:54 Blood Pressure 116/70 04/17/24 10:54 Pulse Oximetry 98 04/17/24 10:54 Oxygen Delivery Room Air 04/17/24 10:54 Temperature 99.5 F 04/17/24 10:54 Pulse Rate 78 04/17/24 10:54 Respiratory Rate 16 04/17/24 10:54 Blood Pressure 116/70 04/17/24 10:54 Pulse Oximetry 98 04/17/24 10:54 Oxygen Delivery Room Air 04/17/24 10:54 reviewed MDM - URI/Sore Throat MDM Narrative Medical decision making narrative: Neg flu covid and strep result reviewed with pt. Noted to have bilateral AOM on exam. Rx abx. Advise supportive treatments. Patient is appropriate for outpatient treatment and follow-up. Differential Diagnosis Differential diagnosis: Likely upper respiratory infection, otitis media, sinusitis, viral infection, bronchitis, influenza and pharyngitis Discharge Plan Discharge Clinical Impression: Otitis media Qualifiers: Otitis media type: suppurative Chronicity: acute Laterality: bilateral Recurrence: non-recurrent Spontaneous tympanic membrane rupture: without spontaneous rupture Qualified Code(s): H66.003 - Acute suppurative otitis media without spontaneous rupture of ear drum, bilateral Upper respiratory infection Qualifiers: URI type: unspecified URI Qualified Code(s): J06.9 - Acute upper respiratory infection, unspecified Patient Disposition: Home, Self-Care Condition: Stable Instructions: Antibiotic Form, Ear Infection (ED) Additional Instructions: Take antibiotics as directed. Recommendations: antihistamine such as Benadryl, Zyrtec or Jaclyn for sinus congestion Flonase nasal spray, 1 spray in each nostril once daily until symptoms improve Symptomatic treatment includes: rest, fluids, and increase humidity of the air at home. Tylenol 1000mg every 8 hours as needed to reduce fever, pain Please schedule a follow-up visit with your personal physician If your symptoms persist, change or worsen significantly, go to the emergency de partment for further evaluation. Patient Language: Japanese Prescriptions: New benzonatate 200 mg capsule 200 mg PO TID PRN (Reason: cough) Qty: 20 0RF prednisone 50 mg tablet 50 mg PO DAILY Qty: 5 0RF amoxicillin-pot clavulanate 875-125 mg tablet 1 tablet PO Q12H 7 Days Qty: 14 0RF No Action methylprednisolone [Medrol (Francisco)] 4 mg tablets,dose pack See Rx Instructions .ROUTE .COMPLEX Qty: 21 0RF Rx Instructions: orally per package directions amoxicillin-pot clavulanate 875-125 mg tablet 1 tablet PO Q12H 10 Days Qty: 20 0RF dextromethorphan-guaifenesin [Mucinex DM] 60-1,200 mg tablet extended release 12 hr 1 tablet PO Q12H Qty: 12 0RF metoprolol succinate 50 mg tablet extended release 24 hr 50 mg PO HS flecainide 100 mg tablet 100 mg PO Q12H Xarelto 20 mg tablet 20 mg PO DAILY Follow-up/Referrals: Harms,Levar Bhagat M.D. [Primary Care Provider] -
[2024-04-17 11:54] LABS: EDCOVIDSCREEN Negative (Negative); EDINFLUASCREEN Negative (Negative); EDINFLUBSCREEN Negative (Negative); EDSTREPNEGPOS1 Negative (Negative)
== END 2024-04-17 12:01 | disposition home or self-care (01) ==
PROVIDERS: Emergency Provider Nurse Practitioner Family; PCP Family Medicine
DX: H66.003 Acute suppurative otitis media without spontaneous rupture of ear drum, bilateral (principal); J06.9 Acute upper respiratory infection, unspecified; I48.91 Unspecified atrial fibrillation; Z20.822 Contact with and (suspected) exposure to COVID-19
CPT/HCPCS: 87081; 87426; 87804; 87880; 99213; G0463